=== PATIENT | male | born 2000 ===

== ENCOUNTER → 2023-09-15 09:47 | Outpatient (AMB) | payer OTHER, SELFPAY ==
--- NOTE | 2023-09-15 10:47 | MHC.OFFWIV ---
Intake Vital Signs 09/15/23 11:44 Height 5 ft 7 in Weight 146 lb BMI 22.9 BP 110/70 Blood Pressure Location Lt brachial Position Sitting Pulse 54 Pulse Source Pulse Oximeter Temp 97.3 F Temp Source Temporal Artery Scan Pulse Oximetry (%) 98 Oxygen Delivery Method Room Air Intake Visit Reasons: EP Bilateral knee/back pain Intake Note: pt is here today for bilateral knee and back pain started 2-3 years Patient Tobacco Use Status: Current everyday Tobacco user Allergies No Known Allergies Allergy (Verified 09/15/23 11:46) Do you need a note to return to daycare/school/sports/work: Yes HPI EP Bilateral knee/back pain HPI Details This is a 22-year-old male patient who presents today with a 2-3 year history of lower back and bilateral knee pain. 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 Since then he has had lower back and knee pain, particularly while running. He has been evaluated for this previously and had imaging done through his PCP. He is awaiting a PT appointment currently (referred by PCP). Denies any leg weakness or numbness. 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 He could not get into PCP so he is requesting this. [facility] Social History Patient Tobacco Use Status: Current everyday Tobacco user Review of Systems Const All systems reviewed & are unremarkable except as noted in HPI and below Physical Exam Vital Signs: Last Vital Signs Temp 97.3 F 09/15/23 11:44 Pulse 54 09/15/23 11:44 BP 110/70 09/15/23 11:44 Pulse Ox 98 09/15/23 11:44 Oxygen Delivery Method Room Air 09/15/23 11:44 BMI result Body Mass Index 22.9 Const General: cooperative, healthy appearing and no acute distress HEENT Head: Yes normal to inspection Resp Effort & Inspection: normal respiratory effort Back/Spine/Pelvis Other: LBP and b/l knee pain with prolonged standing and activity. Normal knee ROM. Skin General skin exam: no rashes or lesions noted Extrem General: Yes no clubbing, cyanosis or edema Psych Appearance: grossly normal Mental Status: mental status grossly normal Speech and movement: Normal speech and movement present Assessment & Plan Assessment & Plan (1) Lower back pain: Code(s): M54.50 - Low back pain, unspecified Qualifiers: Chronicity: chronic Back pain laterality: midline Sciatica presence: without sciatica Qualified Code(s): M54.50 - Low back pain, unspecified; G89.29 - Other chronic pain Plan: Patient not seeking any further workup or treatment today at visit. Only request is for note for work for limited duty while he has further evaluation and treatment through PCP and physical therapy. Back and knee injury in the [employer] 2-3 years ago which has been ongoing. I have provided him with this note today and he can f/u here as needed. All questions were answered and he agrees to plan. (2) Bilateral knee pain: Code(s): M25.561 - Pain in right knee; M25.562 - Pain in left knee Qualifiers: Chronicity: chronic Qualified Code(s): M25.561 - Pain in right knee; M25.562 - Pain in left knee; G89.29 - Other chronic pain Plan: As above. Coding Level of Care Code Est Pt Level 4 (78221) Diagnoses Chronic midline low back pain without sciatica M54.50; G89.29 Chronicity: chronic Back pain laterality: midline Sciatica presence: without sciatica Chronic pain of both knees M25.561; M25.562; G89.29 Chronicity: chronic
[2023-09-15 11:44] VITALS: BP 110/70; PULSE 54; TEMP 36.3; O2SAT 98; BMI 22.9
== END ==
PROVIDERS: Visit Provider Nurse Practitioner Family
DX: M54.50 Low back pain, unspecified (principal); G89.29 Other chronic pain; M25.561 Pain in right knee; M25.562 Pain in left knee
CPT/HCPCS: 99214